=== PATIENT | female | born 1985 | race Caucasian/White ===

== ENCOUNTER 2020-11-30 08:08 | Emergency (ER) | payer OTHER, SELFPAY ==
[2020-11-30 08:23] VITALS: BP 126/69; PULSE 103; RESP 16; TEMP 38; O2SAT 99
--- NOTE | 2020-11-30 08:23 | ED.EAR ---
HPI - Ear Problem General Chief complaint: Upper Respiratory Infection Stated complaint: fever/sore throat History of Present Illness HPI Narrative: This is a 34-year-old female comes in complaining of sore throat, fever, and some body aches. Patient states that symptoms started yesterday she is denied taking any antihistamines she is taking 1 ibuprofen today 200 mg. Patient is not for sure not if she has Covid she has been vaccinated patient will go and have outpatient Covid testing this week I will order it for her. Patient states that her body hurts and she had a slight pain so that is why she took ibuprofen. Patient works at home at this time Related Data Home Medications Medication Instructions Recorded Confirmed albuterol sulfate 2 mcg INHALATION Q4-6H 11/30/20 11/30/20 verapamil 1 mg PO TID 11/30/20 11/30/20 Allergies Allergy/AdvReac Type Severity Reaction Status Date / Time No Known Allergies Allergy Verified 11/30/20 08:31 Review of Systems Review of Systems: Narrative: CONSTITUTIONAL: Reports fever, chills, or sweats. EYES: Denies visual changes, redness, or discharge. ENT: Reports rhinorrhea, congestion, sore throat, or otalgia. CARDIOVASCULAR:Denies chest pain, palpitations, or edema. RESPIRATORY: Denies cough or dyspnea. GASTROINTESTINAL: Denies abdominal pain, nausea, vomiting, or diarrhea. GENITOURINARY: Denies dysuria or hematuria. SKIN:[Denies rash or itching. MUSCULOSKELETAL:Denies back pain, joint pain, or myalgia. NEUROLOGIC: Denies headache, numbness, or reports weakness. PSYCHIATRIC:Denies anxiety or depression PMFSH Social History Social History Gender identity (if verbalized by the patient): Female Comments At time as signature, I have reviewed and agree with nursing past medical, social, surgical and family history. Please see nursing chart for further information. There is no relevant family history pertinent to the presenting complaint. Exam Narrative: Exam Narrative: GENERAL:Well-appearing, well-nourished, and in no acute distress. Febrile sweating HEAD:Normocephalic, atraumatic. EYES: PERRLA and EOMI. ENT: Nares clear, no rhinorrhea or epistaxis. Mucous membranes moist. TM bulging pharyngeal erythema copious exudate enlarged tonsils bilaterally NECK: Supple. CHEST: Clear to auscultation. No respiratory distress. HEART: Regular rate and rhythm. No murmur heard. Normal peripheral pulses. ABDOMEN: Soft, nontender, nondistended, normal active bowel sounds. EXTREMITIES: Normal range of motion. No edema. SKIN: Warm, dry, no rash. NEURO: No focal deficits. Alert and oriented x3. Course HOTEL MAINTENANCE TECHNICIAN/PA Physician Supervision Strep is negative We'll send for off-site Covid test in 2 days Discharge Plan Discharge Clinical Impression: Body aches, Sore throat, Tonsillitis with exudate Fever Qualifiers: Fever type: unspecified Qualified Code(s): R50.9 - Fever, unspecified Patient Disposition: Home, Self-Care Condition: Stable Instructions: Antibiotic Form, Fever in Adults (ED), Tonsillitis (ED) Additional Instructions: Covid instructions FOR THE PATIENT AND HOUSEHOLD MEMBERS: Self-quarantine for at least 7 days from symptom onset plus 3 days after being symptom free. When self-quarantined, stay home and practice infection prevention practices including: ? Stay home when you are sick (fever, cough, upper respiratory infection symptoms) ? Wash your hands often with soap and water for 20 seconds or use an alcohol-based hand want ad receiver, especially before eating, after coughing or sneezing and after using the bathroom. ? Cover your cough or sneeze with a tissue and put the tissue in the trash. ? Avoid close contact with people who are sick. ? Avoid touching your nose, eyes and mouth. ? Clean and disinfect frequently touched objects and surfaces using a regular household cleaning spray or wipe. ? Stay informed about COVID-19 IF YOU HAVE BEEN TESTED AND YOUR RESULTS ARE PENDING, PLEASE CH
== END 2020-11-30 09:00 | disposition home or self-care (01) ==
PROVIDERS: Emergency Provider Nurse Practitioner Family; PCP Family Medicine
DX: R52 Pain, unspecified (principal); J02.9 Acute pharyngitis, unspecified; R50.9 Fever, unspecified; Z20.822 Contact with and (suspected) exposure to COVID-19
CPT/HCPCS: 87081; 87880; 99213; G0463

== ENCOUNTER → 2020-12-02 07:00 | Outpatient (CLI) | payer OTHER, SELFPAY ==
[2020-12-02 17:52] LABS: SARS-CoV-2 RNA PCR Negative
== END ==
PROVIDERS: PCP Family Medicine; Visit Provider Nurse Practitioner Family
DX: Z20.822 Contact with and (suspected) exposure to COVID-19 (principal); R50.9 Fever, unspecified; J02.9 Acute pharyngitis, unspecified
CPT/HCPCS: C9803; U0003; U0005

== ENCOUNTER 2023-10-05 10:56 | Emergency (ER) | payer OTHER, SELFPAY ==
--- NOTE | ~2023-10-05 | US_ITS ---
EXAMINATION: US right upper quadrant DATE: 10/05/2023 13:37 INDICATION: Right upper quadrant abdominal pain. TECHNIQUE: Multiple grayscale and Doppler ultrasound images of the abdomen were obtained. COMPARISON: None FINDINGS: The visualized portions of the head, body, and tail of the pancreas are normal. There is di ffuse hepatic steatosis with areas of focal sparing. There is normal flow in main portal vein. The ga llbladder is normal in size. No gallstones. There are two polyps in the gallbladder measuring up to 5 mm, likely benign cholesterol polyps needing no follow-up. No gallbladder wall thickening or sonogra phic Bray sign. The common duct is normal and measures 4 mm. IMPRESSION: 1. Diffuse hepatic steatosis. Reviewed, dictated and finalized at location A.
[2023-10-05 11:12] VITALS: BP 142/96; PULSE 76; RESP 18; TEMP 36.8; O2SAT 99
[2023-10-05 11:47] LABS: Basophils Absolute Auto 0.1 K/mm3 (0.0-0.1); Basophils Percent Auto 0.8 % (0.2-1.2); Eosinophils Absolute Auto 1.6 K/mm3 (0-0.3); Eosinophils Percent Auto 14.8 % (0-4.4); Hematocrit 41.7 % (37.0-47.0); Hemoglobin 14.3 g/dL (12.0-15.0); Immature Granulocyte Absolute 0.04 K/mm3 (0.00-0.031); Immature Granulocyte Percent A 0.4 % (0-0.5); Lymphocytes Absolute Auto 1.65 K/mm3 (0.9-3.2); Lymphocytes Percent Auto 14.9 % (18.3-44.2); Mean Corpuscular HGB Conc 34.3 g/dl (32-36); Mean Corpuscular Hemoglobin 30.9 pg (26-34); Mean Corpuscular Volume 90.1 fl (80-100); Monocytes Absolute Auto 1.2 K/mm3 (0.1-0.6); Monocytes Percent Auto 10.6 % (2.6-8.5); Neutrophils Absolute Auto 6.5 K/mm3 (1.3-6.7); Neutrophils Percent Auto 58.5 % (45.5-73.1); Platelet Count Result 272 k/mm3 (150-375); Red Blood Count 4.63 M/mm3 (4.2-5.4); Red Cell Distribution Width 12.9 % (11.5-14.5); White Blood Count 11.1 K/mm3 (4.5-10.0)
[2023-10-05 11:50] LABS: Add Urine Microscopic? YES; Appearance Urine Clear (Clear); Bacteria Urine None Seen /hpf; Bilirubin Urine Negative (Negative); Blood Urine Negative (Negative); Color Urine Yellow (Yellow); Glucose Urine UA Negative (Negative); Ketones Urine Negative (Negative); Leukocyte Esterase Ur Trace LEU/UL (Negative); Nitrate Urine Negative (Negative); Non Pathogenic Casts 0-2; Protein Urine Negative (Negative); RBC Urine 0-2 /hpf (0-2); Specific Grav Ur 1.009 (1.001-1.035); Squamous Epithelial Cell Urine None Seen /hpf (Few); Urobilinogen Urine 0.2 mg/dL (<2.0); WBC Urine 0-5 /hpf (0-3); pH Urine 5.5 (5.0-9.0)
[2023-10-05 11:59] LABS: Alanine Aminotransferase 56 U/L (6-35); Albumin Level 4.8 g/dL (3.5-5.1); Alkaline Phosphatase 92 U/L (38-126); Anion Gap 11 mmol/L (4-12); Aspartate Amino Transferase 37 U/L (14-36); Bilirubin,Total 0.5 mg/dL (0.2-1.3); Blood Urea Nitrogen 15 mg/dL (7-17); Calcium 9.5 mg/dL (8.4-10.2); Carbon Dioxide 19 mmol/L (22-30); Chloride 108 mmol/L (98-107); Estimated CRCL calculation 95 ml/min; Estimated Glomerular Filt Rate > 60; Glucose 93 mg/dL (65-110); Lipase 160 U/L (23-300); Sodium 138 mmol/L (137-145)
[2023-10-05 12:05] LABS: SPREG INTERNAL CONTROL Positive; Serum Qual hCG Negative
--- NOTE | 2023-10-05 12:54 | ED.ABDPAIN ---
HPI - Abdominal Pain General Chief Complaint: Abdominal Pain Stated Complaint: upper abd pain Time Seen by Provider: 10/05/23 11:28 History of Present Illness HPI narrative: Patient is a 37-year-old female who presents to the emergency department this morning complaining of mid epigastric and right upper quadrant abdominal pain. Patient admits that the pain has been intermittent on and off for the past few weeks, however, this the pain was severe and she finally decided to come to the emergency department for further evaluation. Patient states that at its worst it is 7/10 on the pain scale. Right now, patient states that while waiting in the emergency department, pain has somewhat subsided. Patient is unsure if the pain is associated with it or if it is worse at night. She denies any similar symptoms in the denies any history of gallstones. Patient states that initially she thought that this could be due to indigestion, however, when the pain continued to reoccur she decided to get it checked. She denies any nausea or vomiting, denies any urinary symptoms and denies any lower abdominal pain. No fevers or chills at home. No additional symptoms or concerns at this time. Related Data Home Medications Medication Instructions Recorded Confirmed albuterol sulfate 90 mcg/actuation 2 mcg inhalation Q4-6H 11/30/20 11/30/20 aerosol inhaler verapamil 40 mg tablet 1 mg PO TID 11/30/20 11/30/20 Allergies Allergy/AdvReac Type Severity Reaction Status Date / Time No Known Allergies Allergy Verified 10/05/23 11:15 Review of Systems Review of Systems: All systems are reviewed and are negative unless stated otherwise in the HPI. [facility] Social History Social History Gender identity (if verbalized by the patient): Female Exam Narrative: General: Alert, awake, afebrile, in no acute distress. HEENT: PERRL, no rhinorrhea, no post nasal drip, oropharynx clear. Cardiovascular: Regular rate and rhythm, no murmurs, rubs or gallops, no peripheral edema. Respiratory: Clear to auscultation bilaterally, no tachypnea, no wheezing, no rhonchi, no rubs, no respiratory distress. Abdomen: Soft, mild tenderness to palpation over the right upper quadrant, nondistended, no rebound, no guarding, no peritoneal signs. Musculoskeletal: No joint swelling or deformity, normal muscle tone. Skin: No rashes or petechia, no signs of infection. Neurological: Alert and oriented to person, place, and time. Follows all commands. No focal deficits, speech is clear and fluent. Course Vital Signs Vital signs: Vital Signs Temperature 98.2 F 10/05/23 11:12 Pulse Rate 76 10/05/23 11:12 Respiratory Rate 18 10/05/23 11:12 Blood Pressure 142/96 H 10/05/23 11:12 Pulse Oximetry 99 10/05/23 11:12 Oxygen Delivery Room Air 10/05/23 11:12 Temperature 98.2 F 10/05/23 11:12 Pulse Rate 76 10/05/23 11:12 Respiratory Rate 18 10/05/23 11:12 Blood Pressure 142/96 H 10/05/23 11:12 Pulse Oximetry 99 10/05/23 11:12 Oxygen Delivery Room Air 10/05/23 11:12 MDM - Abdominal Pain MDM Narrative Medical decision making narrative: The patient was evaluated by myself in the emergency department. History is obtained from patient who is an independent historian and physical exam was performed. External medical records were reviewed at this time. IV was established and pertinent tests were ordered. Laboratory results obtained revealing white blood cell count of 11.1, AST 37, ALT 56, otherwise unremarkable. Imaging studies obtained included gallbladder ultrasound which was independently interpreted by me revealing hepatic steatosis and 2 gallbladder polyps, which is pending final radiology interpretation. Patient was provided with a copy of her ultrasound report and instructed that she will need to follow-up with a director of advertising sales to trend her liver enzymes and these gallblad
== END 2023-10-05 14:30 | disposition home or self-care (01) ==
PROVIDERS: Emergency Provider Emergency Medicine; PCP Internal Medicine
DX: R10.13 Epigastric pain (principal); R74.01 Elevation of levels of liver transaminase levels; K82.4 Cholesterolosis of gallbladder; K76.0 Fatty (change of) liver, not elsewhere classified
CPT/HCPCS: 36415; 76705; 80053; 81001; 82248; 83690; 84703; 85025; 99284